=== PATIENT | male | born 1935 | race Two or more races ===

== ENCOUNTER 2023-12-05 14:47 | Emergency (ER) | payer OTHER ==
[~2023-12-05] VITALS: Ht 167.6 cm; Wt 59.0 kg
[~2023-12-05 14:47] MED LIST: AMIODARONE HCL100 MG; AMLODIPINE-OLM1 EAC2; ANTIFUNGAL113 GM; AVAPRO150 MG PO; BEET ROOT-TART1 EACH PO; CARVEDILOL ER40 MG; FARXIGA10 MG PO; FERROUS FUMARA324 MG; FOLIC ACID0.4 MG PO; GRALISE600 MG; ILEVRO3 ML; LIPITOR80 MG PO; MUPIROCIN15 GM; OPTIVE EYE DROP15 ML; PEPCID AC20 MG; PLAVIX75 MG; PLAVIX75 MG PO; PROTONIX40 MG PO; SENNA PLUS TAB1 EACH; TAMS0.4C PO; XARELTO15 MG; ZADITOR5 ML
[2023-12-05 16:58] LABS: HEMATOCRIT 36.8 % (39.0-48.0); HEMOGLOBIN 12.4 g/dL (13-16.00); MEAN CELL VOLUME 84.4 fL (80.0-100.00); MEAN CORPUSCULAR HEMOGLOBIN 28.4 pg (27.00-32.0); MEAN CORPUSCULAR HGB CONC 33.6 g/dl (32.0-36.0); PLATELET COUNT 182 K/uL (150-450); RED BLOOD COUNT 4.35 M/uL (4.00-6.00); RED CELL DISTRIBUTION WIDTH 14.9 % (11.5-14.5)
[2023-12-05 17:18] LABS: INR 1.12; PARTIAL THROMBOPLASTIN TIME 30.4 SECONDS (22.0-34.0); PROTHROMBIN TIME 12.1 SECONDS (9.0-11.5)
[2023-12-05 17:21] LABS: CALCIUM 8.7 mg/dL (8.5-10.1); CREATININE SERUM 1.24 mg/dL (0.70-1.30); GFR 55.27; POTASSIUM 4.42 mEq/L (3.5-5.1)
[2023-12-05] MEDS ORDERED: BARIUM SULFATE 450 ML ORAL.SUSP PO ONE (17:27)
[2023-12-05] MEDS ORDERED: HYDROCORTISONE 0.5% TOP ONE (19:00)
[2023-12-06 01:08] LABS: URINE APPEARANCE Cloudy; URINE BILIRRUBIN Negative (NEGATIVE); URINE BLOOD Negative; URINE COLOR Yellow; URINE GLUCOSE Negative (NEGATIVE); URINE KETONE Trace (NEGATIVE); URINE LEUKOCYTE Small; URINE NITRATE Negative; URINE PROTEIN Trace (NEGATIVE); URINE UROBILINOGEN 0.2 E.U./dl
[2023-12-06 01:11] LABS: URINE BACTERIA 513.9 uL (0.0-1933); URINE EPITHELIAL CELLS 63.9 uL (0.0-38.8); URINE RBC 14.1 uL (0.0-20.8); URINE WBC 88.5 uL (0.0-23.2)
[2023-12-06 01:37] LABS: URINE CAST 1.06 uL (0.0-1.40); URINE CRYSTALS FEW /HPF; URINE MUCUS SCANT
[2023-12-06] MEDS ORDERED: DIPROLENE 0.05%15 GM TOP (01:50)
[2023-12-06] MEDS ORDERED: CEPHALEXIN250 MG/5 M PO (01:50)
[2023-12-06] MEDS ORDERED: CEFTRIAXONE SODIUM 1,000 MG VIAL IV STA (01:57)
[2023-12-06] MEDS ORDERED: CEFTRIAXONE SODIUM 1,000 MG VIAL ONE (01:58)
== END 2023-12-06 02:08 ==
LOC: ER 14:48
PROVIDERS: Emergency Medicine
DX: K29.70 Gastritis, unspecified, without bleeding (principal); R42 Dizziness and giddiness; Z88.2 Allergy status to sulfonamides; Z91.013 Allergy to seafood; Z91.041 Radiographic dye allergy status; R10.9 Unspecified abdominal pain
CPT/HCPCS: 36415; 74177; 96365; 99284; J0696; Q9965